=== PATIENT | female | born 2000 | race Caucasian/White ===

== ENCOUNTER 2020-12-26 07:33 | Inpatient (IN) ==
[2020-12-26] MEDS ORDERED: OXYTOCIN/0.9 % SODIUM CHLORIDE 30 UNITS/500 ML BAG IV ONE ×2 (07:41→18:59)
[2020-12-26] MEDS ORDERED: DEXTROSE 5%-LACTATED RINGERS 1,000 ML IV PRN (07:41)
[2020-12-26] MEDS ORDERED: ONDANSETRON 4 MG TAB.RAPDIS PO PRN (07:41)
[2020-12-26] MEDS ORDERED: RINGER'S SOLUTION,LACTATED 1,000 ML IV ONE (07:41)
[2020-12-26] MEDS ORDERED: MISOPROSTOL 100 MCG TABLET VG PRN (07:41)
[2020-12-26] MEDS ORDERED: PRENATAL VITS96/IRON FUM/FOLIC 1 TAB TABLET PO SCH (09:00)
[2020-12-26 10:27] LABS: Hematocrit 36.2 % (37.0-47.0); Hemoglobin 12.1 gm/dL (12.5-16.0); Mean Cell Volume 89.8 fl (78-100); Mean Corpuscular Hgb Conc 33.4 g/dl (32-36); Mean Platelet Volume 10.7 fl (8-12.5); Neutrophil # 6.6 K/mm3 (1.3-6.0); Neutrophil % 67.1 % (42-75.0); Platelet Count 204 K/mm3 (150-450); Red Blood Count 4.03 M/mm3 (4.2-5.4); Red Cell Distribution Width 12.6 % (11.5-14.0); White Blood Count 9.9 K/mm3 (4.0-10.5)
--- NOTE | 2020-12-26 12:04 | HP ---
Chief Complaint - Chief Complaint Date of Service: 12/26/20 Time of Service: 11:10 Chief Complaint: induction of labor for IUGR History of Present Illness: 20 yo at 37w4d admitted to L&D for induction of labor due to IUGR (AC <3%, previous 27.6%). Patient denies any illness, trauma, or preeclampsia s/s. This pregnnancy otherwise uncomplicated. Rh positive Rubella immune GBS negative Medical History (Last Reviewed 12/26/20 @ 12:01 by Reno Rosenbaum DO) Influenza vaccination declined Onset Date: 07/28/20 Pneumonia with pleural effusion-age 3 Surgical History: Surgical History (Last Reviewed 12/26/20 @ 12:01 by Reno Rosenbaum DO) No significant past surgical history Family History: Family History (Last Reviewed 12/26/20 @ 12:01 by Reno Rosenbaum DO) Mother Alive and well Father Alive and well Social History: (Last Reviewed 12/26/20 @ 12:01 by Reno Rosenbaum DO) Social History: Marital status: household members: spouse current occupational status: employed current occupation: [employer] Highest level of school completed/degree received: 8th grade Service: No Tobacco: Smoking Status: Never smoker Alcohol: alcohol intake: never Substance Use: substance use type: does not use Dietary Habits: caffeine: Yes caffeine comment: 1/day Type: coffee daily servings of milk/calcium: 0-1 Review Of Systems (GEN) - Review of Systems Generalized/Overall Review: Present: No Symptoms Reported EENTM: Present: No Symptoms Reported Respiratory: Present: No Symptoms Reported Cardiac: Present: No Symptoms Reported Abdominal: Present: No Symptoms Reported Genitourinary: Present: No Symptoms Reported Musculoskeletal: Present: No Symptoms Reported Neurological: Present: No Symptoms Reported Skin: Present: No Symptoms Reported Endocrine: Present: No Symptoms Reported Allergies/Adverse Reactions: Allergies Allergy/AdvReac Type Severity Reaction Status Date / Time No Known Allergies Allergy Verified 12/26/20 10:23 Home Medications: HOME MEDICATIONS Vits96/Iron Fum/Folic [ S] 1 tab PO DAILY 12/26/20 [Last Taken Unknown] Exam - Exam Vital Signs: Vital Signs - Last Taken Temp 35.8 C L 12/26/20 10:32 Pulse 73 12/26/20 10:32 Resp 16 12/26/20 10:32 BP 139/75 12/26/20 10:32 Pulse Ox 100 12/26/20 10:32 Constitutional: Present: Alert, Oriented x3, Cooperative ENT Exam: Present: hearing grossly normal Neck: Present: non-tender, trachea midline. Absent: thyromegaly Respiratory: Present: lungs clear, normal breath sounds, no respiratory distress Cardiovascular/Chest: Present: normal peripheral pulses, regular rate, rhythm, no edema Abdomen: Present: soft, nontender, no rebound tenderness, other - gravid. Absent: distended /Rectal: Present: Other - Cervix 80/0 Extremity: Present: no pedal edema, no calf tenderness Skin Exam: Present: normal color, warm/dry, no cyanosis Lymphatic: Present: no adenopathy Neurologic: Present: alert, normal mood/affect, oriented x 3 Appearance: Present: appropriate appearance, appropriate insight Eye contact: Present: cooperative, good eye contact Thoughts: Present: normal thought pattern, normal mood /affect Diagnostic Studies: Abnormal Lab Results 12/26/20 Range/Units 10:24 RBC 4.03 L (4.2-5.4) M/mm3 Hgb 12.1 L (12.5-16.0) gm/dL Hct 36.2 L (37.0-47.0) % Immature Gran % (Auto) 0.90 H (0.001-0.429) % Immature Gran # (Auto) 0.09 H (0.000-0.0310) K/mm3 Monocytes % 9.4 H (0.0-9) % Neutrophils # 6.6 H (1.3-6.0) K/mm3 Laboratory Results WBC 9.9 K/mm3 (4.0-10.5) 12/26/20 10:24 RBC 4.03 M/mm3 (4.2-5.4) L 12/26/20 10:24 Hgb 12.1 gm/dL (12.5-16.0) L 12/26/20 10:24 Hct 36.2 % (37.0-47.0) L 12/26/20 10:24 MCV 89.8 fl (78-100) 12/26/20 10:24 MCH 30.0 pg (27-31) 12/26/20 10:24 MCHC 33.4 g/dl (32-36) 12/26/20 10:24 RDW 12.6 % (11.5-14.0) 12/26/20 10:24 Plt Count 204 K/mm3 (150-450) 12/26/20 10:24 MPV 10.7 fl (8-12.5) 12/26/20 10:24 Immature Gran % (Auto) 0.90 % (0.001-0.429) H 12/26/20 10:24 Immature Gran # (Auto) 0.09 K/mm3 (0.000-0.0310) H 12/26/20 10:24 Neutrophils % 67.1 % (42-75.0) 12/26/20 10:24 Lymphocytes % 21.5 % (20-51) 12/26/20 10:24 Monocytes % 9.4 % (0.0-9) H 12/26/20 10:24 Eosinophils % 0.8 % (0.0-3.0) 12/26/20 10:24 Basophils % 0.3 % (0.0-1.0) 12/26/20 10:24 Nucleated RBC % 0.0 k/mm3 (0-1) 12/26/20 10:24 Neutrophils # 6.6 K/mm3 (1.3-6.0) H 12/26/20 10:24 Lymphocytes # 2.12 k/mm3 (1.5-3.5) 12/26/20 10:24 Monocytes # 0.9 k/mm3 (0.0-1.0) 12/26/20 10:24 Eosinophils # 0.1 k/mm3 (0.0-0.7) 12/26/20 10:24 Absolute Basophils 0.0 k/mm3 (0.0-0.1) 12/26/20 10:24 Ultrasound on 12/23/20 showed: BPD: 5.81 cm; 34 weeks 2 day; 4.3 % (previous 3.7 %) HC: 31.51 cm; 35 weeks 3 day; <3 % (previous 4.9 %) AC: 30.06 cm; 34 weeks 0 day; <3 % (previous 27.6 %) FL: 7.05 cm; 36 weeks 1 day; 24.1 % (previous 65.8 %) HC/AC ratio: 1.05 (0.93 - 1.11) Estimated weight: 2515 g, +/- 377 g, (5 lb. 9 oz.) at 19.1 % (previous 50.8%) heart rate: 150 beats per minute. presentation: Cephalic Placenta: Posterior; no evidence for focal concerning finding or placenta previa. Amniotic fluid index: 11.12 cm cord Doppler systolic to diastolic ratio ranging from 2.2 - 2.7. Umbilical artery artery Doppler waveforms are normal with no reduced, absent or reversed diastolic flow. Assessment/Plan - Assessment/Plan (1) IUGR (intrauterine growth restriction) Assessment: Admit for pitocin induction of labor. Case discussed with vice president payment personnel worker, Dr. Stanton. Epidural PRN. Problem: Acute
--- NOTE | 2020-12-26 12:07 | PN ---
Progess Note - Interim Date: 12/26/20 Time: 11:25 Narrative: 12/26/20 12:05 Patient rating her contractions as mild. Vital signs stable. FHT: 140 baseline, reassuring contractions q 2 min Cervix: 4/100/0, AROM-clear Impression: Intrauterine at 37-4/7 weeks induction of labor for IUGR. Plan: Continue present plan. Epidural and Pitocin as needed.
[2020-12-26] MEDS ORDERED: BUPIVACAINE HCL/0.9 % NACL/PF 250 ML EP PRN (14:59)
[2020-12-26] MEDS ORDERED: NALOXONE HCL 1 MG/1 ML SYRG IV PRN (14:59)
[2020-12-26] MEDS ORDERED: ONDANSETRON HCL/PF 2 MG/ML VIAL IV PRN (14:59)
--- NOTE | 2020-12-26 15:00 | ANES ---
Anesthesia Pre Procedure Eval Vitals/Labs: Last Vital Signs Temp 35.8 C L 12/26/20 10:32 Pulse 73 12/26/20 10:32 Resp 16 12/26/20 10:32 BP 139/75 12/26/20 10:32 Pulse Ox 100 12/26/20 10:32 HOME MEDICATIONS Vits96/Iron Fum/Folic [ S] 1 tab PO DAILY 12/26/20 [Last Taken Unknown] Allergies/Adverse Reactions: Allergies Allergy/AdvReac Type Severity Reaction Status Date / Time No Known Allergies Allergy Verified 12/26/20 10:23 - Planned Procedure Planned Procedure: Induction Medication List Reviewed:: Yes Allergies Verified: Yes Medical History (Last Reviewed 12/26/20 @ 14:56 by Toro Allen CRNA) Influenza vaccination declined Onset Date: 07/28/20 Pneumonia with pleural effusion-age 3 Surgical History (Last Reviewed 12/26/20 @ 14:56 by Toro Allen CRNA) No significant past surgical history Family History (Last Reviewed 12/26/20 @ 14:56 by Toro Allen CRNA) Mother Alive and well Father Alive and well - Family Anesthesia History Family History:: no untoward family reactions to anesthesia, no familial bleeding tendencies, no family history of clotting disorders, no family history of premature - Airway/Neck/Teeth Within Normal Limits:: Yes Teeth Condition: intact Neck Exam: full range of motion Mallampatti Score: 2 Thyromental (T-M) distance: > 6 cm Mandibulo Hyoid distance: > 3 cm - Respiratory Respiratory Physical: lungs clear Smoking Status: Never smoker Sleep Apnea currently treated: No Sleep Apnea by current assessment: No - Cardiovascular Tolerate Activity: Good Heart Sounds: S1 & S2, Regular - Gastrointestinal NPO since: most of day - Anesthesia Assessment and Plan ASA Class: PS, II, E Anesthesia Type Plan: Epidural - CSE for labor analgesia
[2020-12-26] MEDS ORDERED: fentaNYL CITRATE/PF 50 MCG/ML AMPUL ONE (15:14)
[2020-12-26] MEDS ORDERED: fentaNYL CITRATE/PF 50 MCG/ML AMPUL IT SCH (15:15)
--- NOTE | 2020-12-26 15:26 | ANES ---
Post Anesthesia Discharge - Transfer of Care Transfer of Care handoff given to nurse: Yes - Discharge from PACU Discharge from PACU when meets criteria: Yes - Coomfortable post CSE.
--- NOTE | 2020-12-26 15:29 | ANES ---
Anesthesia Procedure Note Procedure Note: ANESTHESIA PROCEDURE NOTE Date of Procedure: 12/26/2020 Time of procedure: 1500. Performed by: ELAN Jonas CRNA, MSN Preprocedure diagnosis: Active labor, labor pain. Post procedure diagnosis: Same. Procedure:Epidural for labor analgesia L3-4. Indications: Labor pain. Findings: See below. Details of the procedure: The patient was placed on the side of the bed in sitting positionand prepped with DuraPrep then draped in a sterile fashion. Lidocaine 1% was infiltrated to the skin and subcutaneous tissues at the level of the L3-4 interspace. An 18-gauge Touhy needle was used to approach the epidural space with loss of resistance technique. Once loss of resistance was achieved a 27-gauge spinal needle was passed through the epidural needle and CSF was contacted. After CSF returned, 20 mcg of fentanyl was injected in the spinal needle was removed the epidural catheter was then threaded approximately 4 cm in the epidural needle was removed. The catheter was taped in place and after careful aspiration 3 mL of 1.5% lidocaine with 1-200,000 epinephrine was injected without change in maternal heart rate or sensorium. . EBL: Minimal. Fluids: N/A. Specimen: N/A. Post procedure condition: The patient tolerated the procedure well with good relief. No complications were noted. Thank you for this consultation. Toro Allen CRNA, ELAN, MSN
--- NOTE | 2020-12-26 15:41 | ANES ---
Post Anesthesia Assessment - Vital Signs Vitals: Last Vital Signs Temp 35.8 C L 12/26/20 10:32 Pulse 73 12/26/20 10:32 Resp 16 12/26/20 10:32 BP 139/75 12/26/20 10:32 Pulse Ox 100 12/26/20 10:32 Airway Patency: Normal - Mental Status Level Of Consciousness: Awake, Alert, Appropriate - Pain Level Pain Score: 0 - N/V Assessment Nausea/Vomiting Presence: None Dehydration:: No
[2020-12-26] MEDS ORDERED: LIDOCAINE HCL 50 ML VIAL ONE (18:30)
--- NOTE | 2020-12-26 18:56 | OR ---
Operative Report - Dictated Report Narrative: Spontaneous vaginal delivery of vigorously crying viable male at 1817 on 12/26/2020 with Apgars 9 and 9, weighing 3113 g in ARABELLA position with nuchal and body cord x1. Cord clamping delayed approximately 1 minute Placenta delivered complete, intact, with three vessel cord Estimated blood loss: 200 mL Anesthesia: Epidural Lacerations: Right labial laceration near clitoral garcia repaired with 4-0 Vicryl Rapide. History for MU History for Definition: * The number of deliveries resulting in a live the patient experienced prior to current hospitalization * The previous delivery of live twins or any live multiple gestation is considered one live event. *If primagravida or nulliparous is documented select zero for the number of previous live births. Live Events: Live Events: 0
[2020-12-26] MEDS ORDERED: SENNOSIDES 8.6 MG TABLET PO PRN (18:59)
[2020-12-26] MEDS ORDERED: BENZOCAINE/MENTHOL 81 SPRAY CAN TP PRN (18:59)
[2020-12-26] MEDS ORDERED: HYDROCORTISONE 30 APPL TUBE TP PRN (18:59)
[2020-12-26] MEDS ORDERED: BISACODYL 10 MG SUPP.RECT RC PRN (18:59)
[2020-12-26] MEDS ORDERED: IBUPROFEN 800 MG TABLET PO PRN (18:59)
[2020-12-26] MEDS ORDERED: oxyCODONE HCL/ACETAMINOPHEN 1 TAB TABLET PO PRN (18:59)
[2020-12-26] MEDS ORDERED: GLYCERIN/WITCH HAZEL LEAF 40 APPL BOX TP PRN (18:59)
[2020-12-26] MEDS: DOCUSATE SODIUM 100 MG CAPSULE PO SCH (22:15)
[2020-12-27] MEDS ORDERED: PRENATAL VITS96/IRON FUM/FOLIC 1 TAB TABLET PO SCH (09:00)
[2020-12-27] MEDS: DOCUSATE SODIUM 100 MG CAPSULE PO SCH ×2 (10:19→21:22)
--- NOTE | 2020-12-27 12:14 | PN ---
Subjective - Date and Time Seen Date: 12/27/20 Time: 12:13 Objective - Vitals Vitals: Last Vital Signs Temp 36.4 C 12/27/20 07:30 Pulse 79 12/27/20 07:30 Resp 18 12/27/20 07:30 BP 115/66 12/27/20 07:30 Pulse Ox 99 12/27/20 07:30 Patient denies complaints. Breast-feeding. Lochia wnl abdomen - soft, nontender Uterus -firm, at umbilicus - 1 No calf tenderness Impression: day #1 - s/p spontaneous vaginal delivery. Plan: Continue routine care Cauti Physician Documentation - Urinary Catheter Management Urethral (Castro) Date of Insertion: 12/26/20 Time of Insertion: 14:00 Date of Removal: 12/26/20 Time of Removal: 17:45 Assessment/Plan - Problems/Diagnosis (1) IUGR (intrauterine growth restriction) Problem: Acute
[2020-12-27] MEDS: IBUPROFEN 800 MG TABLET PO PRN ×2 (14:38→21:22)
--- NOTE | 2020-12-28 09:54 | PN ---
Subjective - Date and Time Seen Date: 12/28/20 Time: 07:15 Objective - Vitals Vitals: Last Vital Signs Temp 37.2 C 12/28/20 06:15 Pulse 81 12/28/20 06:15 Resp 18 12/28/20 06:15 BP 121/71 12/28/20 06:15 Pulse Ox 99 12/28/20 06:15 Patient denies complaints. Breast-feeding well. Lochia wnl abdomen - soft, nontender Uterus -firm, at umbilicus - 2 No calf tenderness Impression: day #2 - s/p spontaneous vaginal delivery. Plan: Routine discharge instructions Cauti Physician Documentation - Urinary Catheter Management Urethral (Castro) Date of Insertion: 12/26/20 Time of Insertion: 14:00 Date of Removal: 12/26/20 Time of Removal: 17:45 Assessment/Plan - Problems/Diagnosis (1) IUGR (intrauterine growth restriction) Problem: Acute
--- NOTE | 2020-12-28 09:57 | DS ---
OB Discharge Summary (1) IUGR (intrauterine growth restriction) Status: Resolved Delivery Date: 12/26/20 Delivery Time: 18:17 :: 1 Para:: 1 Gestational weeks:: 37 Gestational days:: 4 Intrapartum Procedures: Spontaneous Vaginal Delivery, Delivered Discharge Diagnosis: Term -Delivered - Discharge Information Date of Discharge: 12/28/20 Hospital Course: 20-year old 1 para 0 admitted at 37-4/7 weeks for induction of labor due to IUGR diagnosed by abdominal circumference less than 3rd percentile on ultrasound. Labor, delivery, and course were uncomplicated. Assessment of baby after delivery did not agree with ultrasound findings of IUGR. Discharge Location: Home Disposition: Home self-care Condition: Good Activity on Discharge:: Activity as tolerated, Pelvic Rest Discharge Diet: General/regular food Additional Patient Instructions (free text): Your post follow up appointment with Dr. Rosenbaum is scheduled on Sunday January 24, 2021 at 9:15 a.m Please call [facility] or [facility] with any problems or concerns. Partha's follow up appointment is scheduled with Dr. Stanton on Wednesday December 30, 2020 at 3:15 p.m. Please call [facility] with any problems or concerns. Partha passed his hearing screen Partha's blood type is O positive Prescriptions (Any new or edited meds): Ferrous Sulfate 325 mg PO DAILY #60 tablet Ibuprofen [Motrin] 200 - 800 mg PO Q6H PRN #100 tab PRN Reason: Pain Complete Home Medications List: Complete Home Medication List: Vits96/Iron Fum/Folic [ S] 1 tab PO DAILY 12/26/20 Ferrous Sulfate 325 mg PO DAILY #60 tablet 12/28/20 Ibuprofen [Motrin] 200 - 800 mg PO Q6H PRN #100 tab 12/28/20 - Plan Discharge to:: Home Follow up in office in:: 3-4 weeks - [place] Information Weight (Grams): 3,113 Sex: Male Score 1 min: 9 Score 5 min: 9 Infant Complications: Decreased Variability, Other - Nuchal and body cord x1.
[2020-12-28] MEDS: DOCUSATE SODIUM 100 MG CAPSULE PO SCH (10:24)
[2020-12-28 13:04] VITALS: BP 121/72
== END 2020-12-28 13:00 | disposition home or self-care (01) | DRG 807 ==
LOC: OB 07:33
PROVIDERS: ADMIT Obstetrics & Gynecology; ATTEND Obstetrics & Gynecology